=== PATIENT | male | born 1995 | race Caucasian/White ===

== ENCOUNTER 2017-07-09 17:46 | Emergency (ER) | payer OTHER ==
[~2017-07-09] VITALS: Ht 177.8 cm; Wt 95.5 kg
[2017-07-09 20:32] VITALS: BP 135/69; PULSE 91; TEMP 98.7
== END 2017-07-09 20:25 | disposition home or self-care (01) ==
LOC: COL.ER 17:46
DX: S62.632A Displaced fracture of distal phalanx of right middle finger, initial encounter for closed fracture (principal); W22.8XXA Striking against or struck by other objects, initial encounter; Y92.009 Unspecified place in unspecified non-institutional (private) residence as the place of occurrence of the external cause